=== PATIENT | female | born 1955 | race Caucasian/White ===

== ENCOUNTER → 2016-07-09 | Outpatient (REF) | payer OTHER ==
[~2016-07-09] MED LIST: ALBU83IN INH; ASPI1TAB6 PO; ASPI81TAEC PO; CALC1TAB30 PO; CLIN1CAP5 PO; INSULADS SC; IPRA2IN INH; KENALOG 0.1%; LASI40TA PO; LIPI20TA PO; LISI-542 PO; METF1000 PO; NICO14DI3 TD; NO HOME MEDS; TIOT18INH INH; TYLE325T5 PO; VITA100T60 PO; VITMTA PO; atrovent INH; ventolin neb INH
[2016-07-09 14:03] LABS: ANION GAP 7 MEQ/L (8-16); BLOOD UREA NITROGEN 12 MG/DL (7-18); CARBON DIOXIDE LEVEL 33 MEQ/L (21-32); CHLORIDE LEVEL 99 MEQ/L (98-107); GLOMERULAR FILTRATION RATE > 60.0 (>45); GLUCOSE, FASTING 208 MG/DL (80-110); POTASSIUM SERUM 4.3 MEQ/L (3.5-5.1); SODIUM LEVEL 139 MEQ/L (136-145)
== END ==
LOC: M SFHCPLAZ 12:17
PROVIDERS: ATTEND Nurse Practitioner Family
DX: E11.9 Type 2 diabetes mellitus without complications (principal)

== ENCOUNTER → 2016-10-09 | Outpatient (REF) | payer OTHER ==
[2016-10-09 19:12] LABS: CALCIUM LEVEL 9.1 MG/DL (8.8-10.2); CREATININE FOR GFR 1.04 MG/DL (0.55-1.02); GLOMERULAR FILTRATION RATE 57.4 (>45)
== END ==
LOC: M SFHCPLAZ 15:01
PROVIDERS: ATTEND Nurse Practitioner Family
DX: E11.9 Type 2 diabetes mellitus without complications (principal)

== ENCOUNTER → 2017-12-30 | Outpatient (CLI) | payer OTHER ==
[2017-12-30 07:39] LABS: ESTIMATED AVERAGE GLUCOSE 160 MG/DL (60-110); HEMOGLOBIN A1c 7.2 %
[2017-12-30 07:50] LABS: ALBUMIN 3.5 GM/DL (3.2-5.2); ALBUMIN/GLOBULIN RATIO 1.06 (1.00-1.93); ALKALINE PHOSPHATASE 117 U/L (45-117); ALT/SGPT 18 U/L (12-78); ANION GAP 4 MEQ/L (8-16); AST/SGOT 12 U/L (7-37); BILIRUBIN,TOTAL 0.3 MG/DL (0.2-1.0); BLOOD UREA NITROGEN 14 MG/DL (7-18); CALCIUM LEVEL 8.9 MG/DL (8.8-10.2); CARBON DIOXIDE LEVEL 36 MEQ/L (21-32); CHLORIDE LEVEL 105 MEQ/L (98-107); CHOLESTEROL LEVEL 114 MG/DL (<200); CREATININE FOR GFR 0.84 MG/DL (0.55-1.30); GLOMERULAR FILTRATION RATE > 60.0 (>45); GLUCOSE, FASTING 115 MG/DL (70-100); HDL CHOLESTEROL 44 MG/DL (>40); LDL CHOLESTEROL 34.8 MG/DL (<100); NON-HDL-C 70 MG/DL; POTASSIUM SERUM 4.3 MEQ/L (3.5-5.1); SODIUM LEVEL 145 MEQ/L (136-145); TOTAL PROTEIN 6.8 GM/DL (6.4-8.2); TRIGLYCERIDES LEVEL 176 MG/DL (<150)
[2017-12-30 07:59] LABS: MAU/CREAT RATIO 80.1 MCG/MG (0.0-30.0)
== END ==
LOC: M LAB 06:52
DX: I10 Essential (primary) hypertension (principal); E11.9 Type 2 diabetes mellitus without complications
CPT/HCPCS: 80053

== ENCOUNTER → 2018-01-21 | Outpatient (CLI) | payer OTHER | LOC: M WHC 13:50 | DX: Z12.31 Encounter for screening mammogram for malignant neoplasm of breast (principal) | CPT/HCPCS: 77067 ==

== ENCOUNTER → 2018-03-10 | Outpatient (CLI) | payer OTHER | LOC: M RAD 11:44 | DX: J44.9 Chronic obstructive pulmonary disease, unspecified (principal); R09.02 Hypoxemia | CPT/HCPCS: 71046 ==

== ENCOUNTER → 2018-03-10 | Outpatient (REF) | payer OTHER ==
[2018-03-10 13:32] LABS: BASO % 0.4 % (0.0-1.0); EOS # 0.5 10^3/uL (0.0-0.50); EOS % 6.1 % (0.0-3.0); HEMOGLOBIN 15.8 g/dl (12.0-15.5); IMMATURE GRANULOCYTE % 0.2 % (0-3.0); LYMPH # 2.2 10^3/uL (1.5-4.5); LYMPH % 25.6 % (24.0-44.0); MEAN CORPUSCULAR HEMOGLOBIN 32.9 pg (27.0-33.0); MEAN CORPUSCULAR HGB CONC 32.9 g/dl (32.0-36.5); MONO # 0.6 10^3/uL (0.0-0.8); MONO % 6.7 % (0.0-5.0); NEUTROPHILS # 5.2 10^3/uL (1.8-7.7); PLATELET COUNT, AUTOMATED 247 10^3/uL (150-450); RED CELL DISTRIBUTION WIDTH 12.5 % (11.5-14.5); WHITE BLOOD COUNT 8.5 10^3/uL (4.0-10.0)
[2018-03-10 13:41] LABS: ALBUMIN 3.8 GM/DL (3.2-5.2); ALBUMIN/GLOBULIN RATIO 1.27 (1.00-1.93); ALKALINE PHOSPHATASE 112 U/L (45-117); ALT/SGPT 25 U/L (12-78); ANION GAP 5 MEQ/L (8-16); AST/SGOT 14 U/L (7-37); BILIRUBIN,TOTAL 0.6 MG/DL (0.2-1.0); BLOOD UREA NITROGEN 9 MG/DL (7-18); CALCIUM LEVEL 9.8 MG/DL (8.8-10.2); CARBON DIOXIDE LEVEL 39 MEQ/L (21-32); CHLORIDE LEVEL 101 MEQ/L (98-107); CREATININE FOR GFR 0.83 MG/DL (0.55-1.30); GLOMERULAR FILTRATION RATE > 60.0 (>45); GLUCOSE, FASTING 80 MG/DL (70-100); NT-PRO BNP 185 PG/ML (<125); POTASSIUM SERUM 4.4 MEQ/L (3.5-5.1); SODIUM LEVEL 145 MEQ/L (136-145); TOTAL PROTEIN 6.8 GM/DL (6.4-8.2)
== END ==
LOC: M SFHCPLAZ 10:06
DX: R09.02 Hypoxemia (principal)

== ENCOUNTER → 2018-04-02 | Outpatient (CLI) | payer OTHER | LOC: M RAD 09:19 | DX: Z12.2 Encounter for screening for malignant neoplasm of respiratory organs (principal); F17.210 Nicotine dependence, cigarettes, uncomplicated | CPT/HCPCS: G0297 ==

== ENCOUNTER → 2018-05-02 | Outpatient (CLI) | payer OTHER ==
[~2018-05-02] MED LIST changes: +CLIN150C14 PO; -CLIN1CAP5 PO; -LASI40TA PO; +LASI40TA9 PO; -METF1000 PO; +METF10004 PO
--- NOTE | 2018-05-02 14:57 | REP ---
RIGHT HAND, FOUR VIEWS: HISTORY: Pain. There is no acute fracture or dislocation. The joint spaces are normal in appearance. IMPRESSION: There is no acute fracture or dislocation. Electronically Signed by Isaias Edward MD 05/02/2018 02:59 P
== END ==
LOC: M WUC 14:25
PROVIDERS: ATTEND Physician Assistant
DX: M79.641 Pain in right hand (principal)

== ENCOUNTER → 2018-07-27 | Outpatient (CLI) | payer OTHER ==
--- NOTE | 2018-07-27 15:46 | REP ---
Clinical: Left anterior shoulder pain. Technique: Internal rotation, external rotation, and Y view of the left shoulder. Comparison: 11/11/2016. Findings: Mild cortical irregularity at the acromioclavicular joint is appreciated and may be slightly increased from prior examination. Subtle cortical irregularity and blunting to the ossified glenoid rim is also now identified. The humeral head appears normal. The subacromial space is normal. No periarticular calcifications or loose bodies are identified. Impression: Mild arthritic changes as described above. Electronically Signed by Km Lopez MD 07/27/2018 03:38 P
== END ==
LOC: M WUC 15:25
PROVIDERS: ATTEND Physician Assistant
DX: M19.012 Primary osteoarthritis, left shoulder (principal)

== ENCOUNTER → 2018-09-03 | Outpatient (REF) | payer OTHER ==
[2018-09-03 12:28] LABS: BASO % 0.4 % (0.0-1.0); EOS # 0.4 10^3/uL (0.0-0.50); EOS % 4.7 % (0.0-3.0); HEMATOCRIT 45.1 % (36.0-47.0); HEMOGLOBIN 15.1 g/dl (12.0-15.5); LYMPH # 2.2 10^3/uL (1.5-4.5); LYMPH % 25.5 % (24.0-44.0); MEAN CORPUSCULAR HGB CONC 33.5 g/dl (32.0-36.5); MEAN CORPUSCULAR VOLUME 98.7 fl (80.0-96.0); MONO # 0.5 10^3/uL (0.0-0.8); MONO % 5.7 % (0.0-5.0); NEUTROPHILS # 5.4 10^3/uL (1.8-7.7); NEUTROPHILS % 63.3 % (36.0-66.0); PLATELET COUNT, AUTOMATED 267 10^3/uL (150-450); RED BLOOD COUNT 4.57 10^6/uL (4.00-5.40); WHITE BLOOD COUNT 8.6 10^3/uL (4.0-10.0)
[2018-09-03 12:45] LABS: HEMOGLOBIN A1c 8.3 %
[2018-09-03 12:51] LABS: BLOOD UREA NITROGEN 16 MG/DL (7-18); CARBON DIOXIDE LEVEL 34 MEQ/L (21-32); CHLORIDE LEVEL 100 MEQ/L (98-107); CREATININE FOR GFR 0.96 MG/DL (0.55-1.30); GLOMERULAR FILTRATION RATE > 60.0 (>45); GLUCOSE, FASTING 226 MG/DL (70-100); POTASSIUM SERUM 4.3 MEQ/L (3.5-5.1); SODIUM LEVEL 138 MEQ/L (136-145)
[2018-09-03 12:52] LABS: ALBUMIN 3.7 GM/DL (3.2-5.2); ALT/SGPT 21 U/L (12-78); BILIRUBIN,TOTAL 0.5 MG/DL (0.2-1.0); CALCIUM LEVEL 9.5 MG/DL (8.8-10.2); TOTAL PROTEIN 7.1 GM/DL (6.4-8.2)
[2018-09-03 12:58] LABS: FOLATE 20.1 NG/ML (>5.4); VITAMIN B12 LEVEL 309 PG/ML (247-911)
== END ==
LOC: M SFHCPLAZ 09:01
PROVIDERS: ATTEND Nurse Practitioner Family
DX: E11.9 Type 2 diabetes mellitus without complications (principal); I10 Essential (primary) hypertension; D75.89 Other specified diseases of blood and blood-forming organs

== ENCOUNTER → 2018-10-14 | Outpatient (CLI) | payer OTHER ==
[~2018-10-14] MED LIST changes: +ACET650T15 PO; +INSULADS INJ
--- NOTE | 2018-10-23 15:01 | SLEEPCENT ---
DATE OF STUDY: 10/14/2018 REFERRING PROVIDER: Keily Hartley NP INTERPRETATION: Nocturnal polysomnography was performed for re-titration of pressure therapy in this patient with known obstructive sleep apnea who had and had previously been on a bilevel of 01/30. She gained approximately 30 pounds since that study. It was initially decided to repeat overnight oximetry on her settings as a "poor screen." Her initial overnight oximetry showed significant fluctuations and so her pressures were empirically increased by 2. A repeat again showed abnormalities and she was increased to a level of 14/10. That overnight oximetry showed that she spent the entire night with saturations less than 88% though a portion of that study was missing. There remained mild fluctuations and it was thought best that she return to the sleep lab for a formal titration. A total of 7 hours and 43 minutes of data were reviewed for the entire titration with 380.5 minutes of sleep identified. Sleep latency was 34.5 minutes. Rapid eye movement (REM) latency was 226 minutes. No slow-wave sleep was observed. Sleep efficiency was 83.8%. Electrocardiogram (EKG) showed normal sinus rhythm with an average heart rate of 78 beats per minute. Unifocal premature ventricular contractions (PVCs) were observed. Speeding and slowing was noted surrounding some respiratory events. No epileptiform discharge observed. The patient had been fit with a [employer] Sim[employer] full-face mask of small size, bilevel was started with an inspiratory positive airway pressure (IPAP) of 14 and an expiratory positive airway pressure (EPAP) of 10 and the lights were dimmed. Her bilevel device was increased to maximum IPAP of 25 and EPAP of 21. That is not a pressure that we will be able to obtain on a machine and she appeared due to do reasonably well on an IPAP of 24 and EPAP of 20. At that pressure, her apnea hypopnea index (AHI) was 1.6 and her respiratory arousal index (MCLAUGHLIN) was 0.8. Periodic limb movement (PLM) index was elevated at 124. However, when she entered REM sleep, she did appear to have oxygen desaturation and 2 liters of oxygen was added to this system. She had a reasonable waveform in REM sleep, though no supine REM sleep was until she was on the pressure of 25/21. At that time, there were a few remaining events. In reviewing the overall study, she did not enter REM until she was on the higher bilevel pressures. When she was on the pressure for a more prolonged period time, she did have a decrease in her oxygen saturation necessitating a 2 liter oxygen bleed in. However, when she had been on that pressure for awhile it became apparent that she had a time period whenever I just about decreased oxygen saturations necessitating oxygen bleed in. IMPRESSION: 1. Obstructive sleep apnea, reasonably palliated on bilevel therapy at . There may be some residual events in supine REM sleep. 2. Nocturnal hypoxemia, 2 liter oxygen bleed in was made to eradicate desaturations. RECOMMENDATIONS: Recommend continuation of bilevel therapy at the above pressure via a small [employer] Simplus full-face mask or mask of her preference. Clinical correlation will be necessary to ensure eradication of symptoms. At later time, a repeat nocturnal oximetry on this pressure with a 2 liter bleed in may be necessary to ensure eradication of nocturnal hypoxemia.
== END ==
LOC: M SLEEP 19:56
PROVIDERS: ATTEND Internal Medicine Pulmonary Disease
DX: G47.33 Obstructive sleep apnea (adult) (pediatric) (principal)

== ENCOUNTER 2018-11-08 11:02 | Day surgery (SDC) | payer OTHER ==
[~2018-11-08] VITALS: Ht 167.6 cm; Wt 88.5 kg
[~2018-11-08 11:02] MED LIST changes: +NS 1,000 ML IV ONE
[2018-11-08] MEDS ORDERED: PROPOFOL 200 MG/20 ML VIAL As Ordered ONE ×2 (14:07→14:40)
[2018-11-08] MEDS ORDERED: LIDOCAINE 2% INJ 100 MG/5 ML SDV (FOR ANES.) As Ordered ONE (14:07)
--- NOTE | 2018-11-08 14:46 | ROOR ---
Patient Name: Brandy Modi Procedure Date: 11/08/2018 2:07 PM Date of : 1955 Age: 63 Room: [facility] Gender: Female Note Status: Finalized Procedure: Total Colonoscopy to Cecum + Cold Snare Polypectomy + Hemoclips Indications: High risk colon cancer surveillance: Personal history of colonic polyps, Last colonoscopy: 2013 Providers: Max Sheehan MD Referring MD: Mima Hilario NP Requesting Provider: Medicines: Monitored Anesthesia Care Complications: No immediate complications. Procedure: Pre-Anesthesia Assessment: - The heart rate, respiratory rate, oxygen saturations, blood pressure, adequacy of pulmonary ventilation, and response to care were monitored throughout the procedure. The Colonoscope was introduced through the anus and advanced to the cecum, identified by appendiceal orifice and ileocecal valve. The colonoscopy was performed without difficulty. The patient tolerated the procedure well. The quality of the bowel preparation was good. Findings: The perianal and digital rectal examinations were normal. Non-bleeding internal hemorrhoids were found during retroflexion. The hemorrhoids were small and Grade I (internal hemorrhoids that do not prolapse). A medium polyp was found in the rectum. The polyp was sessile. The polyp was removed with a cold snare. Resection and retrieval were complete. To prevent bleeding after the polypectomy, two hemostatic clips were successfully placed (MR conditional). There was no bleeding at the end of the procedure. A small polyp was found at 25 cm proximal to the anus. The polyp was sessile. The polyp was removed with a cold snare. Resection and retrieval were complete. A medium polyp was found at 50 cm proximal to the anus. The polyp was sessile. The polyp was removed with a cold snare. Resection and retrieval were complete. To prevent bleeding after the polypectomy, three hemostatic clips were successfully placed (MR conditional). There was no bleeding at the end of the procedure. Two sessile polyps were found in the transverse colon. The polyps were small in size. These polyps were removed with a jumbo cold forceps. Resection and retrieval were complete. The exam was otherwise without abnormality on direct and retroflexion views. Impression: - Non-bleeding internal hemorrhoids. - One medium polyp in the rectum, removed with a cold snare. Resected and retrieved. Clips (MR conditional) were placed. - One small polyp at 25 cm proximal to the anus, removed with a cold snare. Resected and retrieved. - One medium polyp at 50 cm proximal to the anus, removed with a cold snare. Resected and retrieved. Clips (MR conditional) were placed. - Two small polyps in the transverse colon, removed with a jumbo cold forceps. Resected and retrieved. - The examination was otherwise normal on direct and retroflexion views. - The exam was otherwise normal to the cecum. Recommendation: - Patient has a contact number available for emergencies. The signs and symptoms of potential delayed complications were discussed with the patient. Return to normal activities tomorrow. Written discharge instructions were provided to the patient. - High fiber diet. - Discharge patient to home. - Continue present medications. - Await pathology results. - Telephone GI clinic for pathology results in 1 week. - Repeat colonoscopy in 5 years for surveillance based on pathology results. - Return to referring physician. - The findings and recommendations were discussed with the patient's family. Max Sheehan MD Max Sheehan MD 11/08/2018 2:46:03 PM Electronically signed by Max Sheehan MD Number of Addenda: 0 Note Initiated On: 11/08/2018 2:07 PM Estimated Blood Loss: Estimated blood loss: none.
[2018-11-08 15:00] VITALS: BP 142/74
== END 2018-11-08 15:00 | disposition home or self-care (01) ==
LOC: M OPP 11:02
PROVIDERS: ATTEND Internal Medicine Gastroenterology
DX: K64.0 First degree hemorrhoids (principal); K62.1 Rectal polyp; K63.5 Polyp of colon; Z79.4 Long term (current) use of insulin; Z79.82 Long term (current) use of aspirin; Z79.899 Other long term (current) drug therapy; F17.210 Nicotine dependence, cigarettes, uncomplicated; Z12.11 Encounter for screening for malignant neoplasm of colon; Z86.010 Personal history of colon polyps

== ENCOUNTER → 2018-12-06 | Outpatient (REF) | payer OTHER ==
[~2018-12-06] MED LIST changes: -NS 1,000 ML IV ONE
[2018-12-06 13:56] LABS: BASO % 0.4 % (0.0-1.0); EOS # 0.6 10^3/uL (0.0-0.50); EOS % 6.8 % (0.0-3.0); HEMATOCRIT 42.9 % (36.0-47.0); HEMOGLOBIN 14.7 g/dl (12.0-15.5); LYMPH % 24.2 % (24.0-44.0); MEAN CORPUSCULAR HEMOGLOBIN 33.6 pg (27.0-33.0); MEAN CORPUSCULAR HGB CONC 34.3 g/dl (32.0-36.5); MEAN CORPUSCULAR VOLUME 98.2 fl (80.0-96.0); MONO # 0.5 10^3/uL (0.0-0.8); MONO % 5.7 % (0.0-5.0); NEUTROPHILS # 5.1 10^3/uL (1.8-7.7); NEUTROPHILS % 62.5 % (36.0-66.0); PLATELET COUNT, AUTOMATED 257 10^3/uL (150-450); RED BLOOD COUNT 4.37 10^6/uL (4.00-5.40); WHITE BLOOD COUNT 8.2 10^3/uL (4.0-10.0)
[2018-12-06 14:31] LABS: ALBUMIN 3.5 GM/DL (3.2-5.2); ALT/SGPT 25 U/L (12-78); BILIRUBIN,TOTAL 0.6 MG/DL (0.2-1.0); BLOOD UREA NITROGEN 11 MG/DL (7-18); CALCIUM LEVEL 9.1 MG/DL (8.8-10.2); CARBON DIOXIDE LEVEL 31 MEQ/L (21-32); CHLORIDE LEVEL 101 MEQ/L (98-107); CHOLESTEROL LEVEL 121 MG/DL (<200); CHOLESTEROL RISK RATIO 3.102 (<5); CREATININE FOR GFR 0.96 MG/DL (0.55-1.30); GLOMERULAR FILTRATION RATE > 60.0 (>45); GLUCOSE, FASTING 146 MG/DL (70-100); HDL CHOLESTEROL 39 MG/DL (>40); LDL CHOLESTEROL 31 MG/DL (<100); NON-HDL-C 82 MG/DL; POTASSIUM SERUM 4.4 MEQ/L (3.5-5.1); SODIUM LEVEL 140 MEQ/L (136-145); THYROID STIMULATING HORMONE 0.844 uIU/ML (0.358-3.740); TOTAL PROTEIN 6.8 GM/DL (6.4-8.2); TRIGLYCERIDES LEVEL 257 MG/DL (<150)
[2018-12-06 14:33] LABS: CREATININE, URINE 57.2 MG/DL; MALB URINE SIEMENS 10.1 MG/L; MAU/CREAT RATIO 17.6 MCG/MG (0.0-30.0)
[2018-12-06 16:04] LABS: HEMOGLOBIN A1c 8.4 %
== END ==
LOC: M SFHCPLAZ 09:48
PROVIDERS: ATTEND Nurse Practitioner Family
DX: I10 Essential (primary) hypertension (principal); E11.9 Type 2 diabetes mellitus without complications; E78.5 Hyperlipidemia, unspecified; D75.89 Other specified diseases of blood and blood-forming organs

== ENCOUNTER → 2019-04-04 | Outpatient (REF) | payer OTHER ==
[2019-04-04 12:06] LABS: BASO # 0.1 10^3/uL (0.0-0.2); BASO % 0.6 % (0.0-1.0); EOS # 0.4 10^3/uL (0.0-0.5); EOS % 4.6 % (0.0-3.0); HEMOGLOBIN 15.1 g/dl (12.0-15.5); LYMPH # 1.9 10^3/uL (1.5-5.0); LYMPH % 20.9 % (24.0-44.0); MEAN CORPUSCULAR HEMOGLOBIN 33.6 pg (27.0-33.0); MEAN CORPUSCULAR HGB CONC 33.6 g/dl (32.0-36.5); MEAN CORPUSCULAR VOLUME 100.2 fl (80.0-96.0); MONO # 0.5 10^3/uL (0.0-0.8); MONO % 5.7 % (0.0-5.0); NEUTROPHILS # 6.2 10^3/uL (1.5-8.5); NEUTROPHILS % 67.9 % (36.0-66.0); PLATELET COUNT, AUTOMATED 269 10^3/uL (150-450); RED BLOOD COUNT 4.49 10^6/uL (4.00-5.40); WHITE BLOOD COUNT 9.1 10^3/uL (4.0-10.0)
[2019-04-04 12:15] LABS: ALBUMIN 3.8 GM/DL (3.2-5.2); ALT/SGPT 17 U/L (12-78); BILIRUBIN,TOTAL 0.5 MG/DL (0.2-1.0); BLOOD UREA NITROGEN 15 MG/DL (7-18); CALCIUM LEVEL 9.1 MG/DL (8.8-10.2); CARBON DIOXIDE LEVEL 34 MEQ/L (21-32); CHLORIDE LEVEL 101 MEQ/L (98-107); CREATININE FOR GFR 0.99 MG/DL (0.55-1.30); GLOMERULAR FILTRATION RATE > 60.0 (>45); GLUCOSE, FASTING 220 MG/DL (70-100); NT-PRO BNP 170 PG/ML (<125); POTASSIUM SERUM 4.5 MEQ/L (3.5-5.1); SODIUM LEVEL 139 MEQ/L (136-145)
[2019-04-04 12:25] LABS: HEMOGLOBIN A1c 7.9 %
[2019-04-04 13:19] LABS: FOLATE > 24.0 NG/ML (>5.4); VITAMIN B12 LEVEL 323 PG/ML (247-911)
== END ==
LOC: M SFHCPLAZ 09:24
PROVIDERS: ATTEND Physician Assistant Medical
DX: E11.9 Type 2 diabetes mellitus without complications (principal); D75.89 Other specified diseases of blood and blood-forming organs; I50.30 Unspecified diastolic (congestive) heart failure; E78.5 Hyperlipidemia, unspecified

== ENCOUNTER → 2019-04-18 | Outpatient (CLI) | payer OTHER ==
--- NOTE | 2019-04-18 15:58 | REP ---
Clinical: Lower back pain. Technique: AP, lateral, bilateral oblique and coned-down views of the lumbosacral spine. Findings: Alignment and lordosis maintained. Age-related osteopenia and age-related changes include endplate sclerosis with minimal spurring and mild facet arthropathy suggested. Disc spaces appear relatively well maintained although mild disc space narrowing at L5-S1 cannot be excluded. No acute fracture / compression injury or subluxation. Impression: Essentially age-appropriate examination. Minimal disc space narrowing at L5-S1 cannot be excluded. Electronically Signed by Km Lopez MD 04/18/2019 03:50 P
== END ==
LOC: M WUC 15:28
PROVIDERS: ATTEND Nurse Practitioner Family
DX: M54.5 Low back pain (principal)

== ENCOUNTER → 2019-05-17 | Outpatient (CLI) | payer OTHER ==
--- NOTE | 2019-05-18 04:04 | REP ---
Clinical: Lung screening. History smoking. Comparison: 04/02/2018 Technique: Axial low-dose noncontrast images from the thoracic inlet to the upper abdomen using lung screening technique. Findings: The lung turner are well-aerated. No consolidation, significant nodule or mass lesion is appreciated. No pleural effusion/reaction or pneumothorax. Tracheobronchial tree is patent. Mediastinum demonstrates atherosclerotic changes of the coronary arteries without cardiomegaly. Impression: Lung-RADS category I. No nodule or suspicious abnormality. Recommendations include annual low-dose CT surveillance. Electronically Signed by Km Lopez MD 05/18/2019 03:57 A
== END ==
LOC: M RAD 13:24
PROVIDERS: ATTEND Physician Assistant Medical
DX: Z12.2 Encounter for screening for malignant neoplasm of respiratory organs (principal); Z87.891 Personal history of nicotine dependence

== ENCOUNTER → 2019-08-17 | Outpatient (REF) | payer OTHER ==
[2019-08-17 13:14] LABS: BASO % 0.2 % (0.0-1.0); EOS # 0.3 10^3/uL (0.0-0.5); EOS % 3.3 % (0.0-3.0); HEMATOCRIT 48.1 % (36.0-47.0); HEMOGLOBIN 15.6 g/dl (12.0-15.5); LYMPH # 1.5 10^3/uL (1.5-5.0); LYMPH % 19.1 % (24.0-44.0); MEAN CORPUSCULAR HEMOGLOBIN 32.4 pg (27.0-33.0); MEAN CORPUSCULAR HGB CONC 32.4 g/dl (32.0-36.5); MONO # 0.6 10^3/uL (0.0-0.8); MONO % 7.1 % (0.0-5.0); NEUTROPHILS # 5.7 10^3/uL (1.5-8.5); NEUTROPHILS % 70.1 % (36.0-66.0); PLATELET COUNT, AUTOMATED 259 10^3/uL (150-450); RED BLOOD COUNT 4.81 10^6/uL (4.00-5.40); WHITE BLOOD COUNT 8.1 10^3/uL (4.0-10.0)
[2019-08-17 13:29] LABS: ALBUMIN 3.5 GM/DL (3.2-5.2); ALT/SGPT 14 U/L (12-78); BILIRUBIN,TOTAL 0.6 MG/DL (0.2-1.0); BLOOD UREA NITROGEN 9 MG/DL (7-18); CALCIUM LEVEL 9.3 MG/DL (8.8-10.2); CARBON DIOXIDE LEVEL 37 MEQ/L (21-32); CHLORIDE LEVEL 97 MEQ/L (98-107); CREATININE FOR GFR 0.79 MG/DL (0.55-1.30); GLOMERULAR FILTRATION RATE > 60.0 (>45); GLUCOSE, FASTING 192 MG/DL (70-100); NT-PRO BNP 157 PG/ML (<125); POTASSIUM SERUM 4.3 MEQ/L (3.5-5.1); SODIUM LEVEL 137 MEQ/L (136-145); TOTAL PROTEIN 6.7 GM/DL (6.4-8.2)
[2019-08-17 13:57] LABS: CREATININE, URINE 39.7 MG/DL; MALB URINE SIEMENS 9.8 MG/L; MAU/CREAT RATIO 24.6 MCG/MG (0.0-30.0)
[2019-08-17 14:14] LABS: HEMOGLOBIN A1c 7.3 %
== END ==
LOC: M SFHCPLAZ 11:08
PROVIDERS: ATTEND Physician Assistant Medical
DX: I11.0 Hypertensive heart disease with heart failure (principal); I50.30 Unspecified diastolic (congestive) heart failure; E11.9 Type 2 diabetes mellitus without complications

== ENCOUNTER → 2020-05-16 | Outpatient (REF) | payer OTHER ==
[~2020-05-16] MED LIST changes: -CLIN150C14 PO; +CLIN150C15 PO; -LISI-542 PO; +LISI-898 PO
[2020-05-16 13:36] LABS: BASO % 0.4 % (0.0-1.0); EOS # 0.4 10^3/uL (0.0-0.5); EOS % 3.8 % (0.0-3.0); HEMATOCRIT 45.7 % (36.0-47.0); HEMATOCRIT 46.8 % (36.0-47.0); HEMOGLOBIN 15.1 g/dl (12.0-15.5); LYMPH # 2.5 10^3/uL (1.5-5.0); LYMPH % 26.4 % (24.0-44.0); MEAN CORPUSCULAR HEMOGLOBIN 33.5 pg (27.0-33.0); MEAN CORPUSCULAR HGB CONC 32.3 g/dl (32.0-36.5); MEAN CORPUSCULAR VOLUME 103.8 fl (80.0-96.0); MONO # 0.6 10^3/uL (0.0-0.8); MONO % 6.3 % (0.0-5.0); NEUTROPHILS % 62.8 % (36.0-66.0); PLATELET COUNT, AUTOMATED 276 10^3/uL (150-450); RED BLOOD COUNT 4.51 10^6/uL (4.00-5.40); WHITE BLOOD COUNT 9.5 10^3/uL (4.0-10.0)
[2020-05-16 14:04] LABS: ALBUMIN 3.6 GM/DL (3.2-5.2); ALT/SGPT 15 U/L (12-78); BILIRUBIN,TOTAL 0.4 MG/DL (0.2-1.0); BLOOD UREA NITROGEN 9 MG/DL (7-18); CALCIUM LEVEL 9.6 MG/DL (8.8-10.2); CARBON DIOXIDE LEVEL 37 MEQ/L (21-32); CHLORIDE LEVEL 101 MEQ/L (98-107); CHOLESTEROL LEVEL 104 MG/DL (<200); CHOLESTEROL RISK RATIO 2.311 (<5); CPK CREATINE PHOSPHOKINASE 36 U/L (26-192); CREATININE FOR GFR 0.79 MG/DL (0.55-1.30); GLOMERULAR FILTRATION RATE > 60.0 (>45); GLUCOSE, FASTING 83 MG/DL (70-100); HDL CHOLESTEROL 45 MG/DL (>40); LDL CHOLESTEROL 25 MG/DL (<100); NON-HDL-C 59 MG/DL; NT-PRO BNP 220 PG/ML (<125); POTASSIUM SERUM 4.4 MEQ/L (3.5-5.1); SODIUM LEVEL 140 MEQ/L (136-145); TOTAL PROTEIN 6.4 GM/DL (6.4-8.2); TRIGLYCERIDES LEVEL 168 MG/DL (<150)
[2020-05-16 14:08] LABS: FOLATE > 24.0 NG/ML (>5.4); VITAMIN B12 LEVEL 310 PG/ML (247-911)
[2020-05-16 14:10] LABS: CREATININE, URINE 24.5 MG/DL; MAU/CREAT RATIO 28.5 MCG/MG (0.0-30.0)
[2020-05-16 14:16] LABS: HEMOGLOBIN A1c 6.2 %
== END ==
LOC: M SFHCPLAZ 11:52
PROVIDERS: ATTEND Physician Assistant Medical
DX: I11.0 Hypertensive heart disease with heart failure (principal); I50.30 Unspecified diastolic (congestive) heart failure; E11.9 Type 2 diabetes mellitus without complications; D75.89 Other specified diseases of blood and blood-forming organs; E78.5 Hyperlipidemia, unspecified

== ENCOUNTER → 2020-05-25 | Outpatient (CLI) | payer OTHER ==
[~2020-05-25] MED LIST changes: +LISI-542 PO; -LISI-898 PO
--- NOTE | 2020-05-25 08:29 | REP ---
INDICATION: LUNG SCREENING. COMPARISON: Comparison chest CT studies are reviewed, the most recent of these is from 17 May 2019. The most remote is from 25 October 2013.. TECHNIQUE: Noncontrast screening chest CT. 3 mm axial slices are provided at lung only windows. FINDINGS: Digital preliminary stain dipper radiograph is unremarkable. The lung turner remain clear. Vascular calcification is seen. No significant pulmonary nodule or lung mass is seen. On today's CT acquisition, there are 2 areas of focal mural nodular soft tissue density in the trachea, 1 anteriorly at the top of the manubrium and the other just below this along the left lateral wall. each of these measure 5 mm in greatest thickness. Adherent mucus versus tracheal nodule. These findings are new from the prior study. No inflammatory changes are seen in the lung turner. IMPRESSION: There are 2 polypoid densities along the proximal tracheal wall on today's study. These are most likely adherent mucus droplets. Tracheal polyps cannot be excluded radiographically. Consideration could be given to short interval follow-up chest CT screening protocol to evaluate for persistence of the finding. If persistent and felt to be actual polyps, bronchoscopy would be indicated. Otherwise, and regarding the pulmonary parenchyma, findings are lung RADS category 1 S. <Electronically signed by Tony Martinez > 05/25/20 [id number]
== END ==
LOC: M RAD 07:04
PROVIDERS: ATTEND Internal Medicine Pulmonary Disease
DX: Z12.2 Encounter for screening for malignant neoplasm of respiratory organs (principal); F17.218 Nicotine dependence, cigarettes, with other nicotine-induced disorders; R91.8 Other nonspecific abnormal finding of lung field

== ENCOUNTER → 2020-06-18 | Outpatient (CLI) | payer OTHER ==
[~2020-06-18] MED LIST changes: -LISI-542 PO; +LISI-898 PO
--- NOTE | 2020-06-18 12:11 | REP ---
INDICATION: LEFT SHOULDER PAIN. COMPARISON: 07/27/2018 TECHNIQUE: Three views FINDINGS: AC joint shows no widening of the joint space or elevation of the clavicle in relationship to the acromion. There is a inferior spur from the clavicle. On the external rotation view there is a small calcification adjacent to the peripheral margin of the humeral head that may reflect calcific tendinopathy. Minimal degenerative changes at the inferior aspect of the glenohumeral joint noted without subluxation or dislocation. No abnormal periarticular calcifications at the glenohumeral joint. There is no humeral fracture or focal lesion. The ribs and scapula are without fracture. No adjacent pneumothorax in the upper chest. IMPRESSION: 1. AC and glenohumeral joint degenerative changes with small spurs noted. 2. Tiny calcific density adjacent to the greater tuberosity humeral head on external rotation view may reflect some calcific tendinopathy. No fracture or focal bone lesion. <Electronically signed by Maurice Camejo > 06/18/20 [id number]
== END ==
LOC: M RAD 11:24
PROVIDERS: ATTEND Physician Assistant Medical
DX: M25.712 Osteophyte, left shoulder (principal)

== ENCOUNTER → 2020-07-17 | Outpatient (CLI) | payer OTHER ==
[~2020-07-17] MED LIST changes: +ASPI-569 PO; -ASPI81TAEC PO
--- NOTE | 2020-07-17 14:27 | REP ---
INDICATION: OTHER NON SPECIFIC ABNORMAL FINDING OF LUNG FILED. COMPARISON: Comparison CT studies are from 17 May 2019 and 25 May 2020. The April 2020 study showed polypoid nodular densities along the tracheal wall.. TECHNIQUE: Helical scanning is acquired. 3 mm axial images are generated. Coronal and sagittal MPR and coronal MIP images are generated. FINDINGS: There is no evidence of endotracheal polyp on today's study. There is minimal mucoid material adherent to the left mainstem bronchus anterior wall today which is not present on 05 May 2020. No endobronchial lesion is appreciated. There are a few small bulla lie in the left lung apex medially. Mild bibasilar linear fibrosis is observed. Vascular calcification is present as before. No hilar or mediastinal mass or adenopathy is observed. No axillary or extra thoracic mass or adenopathy is seen. Vascular calcification is observed in the tortuous splenic artery in the left upper quadrant of the abdomen. No bony lesion is seen. IMPRESSION: No evidence of persistent tracheal polyp or mass lesion. Findings compatible with adherent mucus on the prior CT study. Mild bibasilar fibrosis. No acute abnormality. <Electronically signed by Tony Martinez > 07/17/20 [id number]
== END ==
LOC: M RAD 10:10
PROVIDERS: ATTEND Internal Medicine Pulmonary Disease
DX: R91.8 Other nonspecific abnormal finding of lung field (principal)

== ENCOUNTER → 2020-09-13 | Outpatient (REF) | payer OTHER ==
[2020-09-13 13:36] LABS: BASO % 0.2 % (0.0-1.0); EOS # 0.4 10^3/uL (0.0-0.5); EOS % 4.6 % (0.0-3.0); HEMOGLOBIN 13.7 g/dl (12.0-15.5); LYMPH # 2.2 10^3/uL (1.5-5.0); MEAN CORPUSCULAR HEMOGLOBIN 32.9 pg (27.0-33.0); MEAN CORPUSCULAR HGB CONC 32.6 g/dl (32.0-36.5); MONO # 0.5 10^3/uL (0.0-0.8); MONO % 5.7 % (2.0-8.0); NEUTROPHILS # 4.9 10^3/uL (1.5-8.5); NEUTROPHILS % 61.1 % (36.0-66.0); PLATELET COUNT, AUTOMATED 251 10^3/uL (150-450); RED BLOOD COUNT 4.16 10^6/uL (4.00-5.40)
[2020-09-13 14:09] LABS: ALBUMIN 3.6 GM/DL (3.2-5.2); ALT/SGPT 13 U/L (12-78); BILIRUBIN,TOTAL 0.4 MG/DL (0.2-1.0); BLOOD UREA NITROGEN 7 MG/DL (7-18); CALCIUM LEVEL 9.8 MG/DL (8.8-10.2); CARBON DIOXIDE LEVEL 34 MEQ/L (21-32); CHLORIDE LEVEL 99 MEQ/L (98-107); CREATININE FOR GFR 0.81 MG/DL (0.55-1.30); GLOMERULAR FILTRATION RATE > 60.0 (>45); GLUCOSE, FASTING 175 MG/DL (70-100); NT-PRO BNP 149 PG/ML (<125); POTASSIUM SERUM 4.3 MEQ/L (3.5-5.1); SODIUM LEVEL 138 MEQ/L (136-145); TOTAL PROTEIN 6.8 GM/DL (6.4-8.2)
[2020-09-13 14:48] LABS: HEMOGLOBIN A1c 8.5 %
== END ==
LOC: M SFHCPLAZ 09:54
PROVIDERS: ATTEND Physician Assistant Medical
DX: I11.0 Hypertensive heart disease with heart failure (principal); E11.9 Type 2 diabetes mellitus without complications; D75.89 Other specified diseases of blood and blood-forming organs

== ENCOUNTER → 2021-01-17 | Outpatient (CLI) | payer OTHER ==
[~2021-01-17] MED LIST changes: -CLIN150C15 PO; +CLIN150C17 PO
[2021-01-17 12:50] LABS: BASO % 0.4 % (0.0-1.0); EOS # 0.3 10^3/uL (0.0-0.5); EOS % 3.5 % (0.0-3.0); HEMATOCRIT 43.2 % (36.0-47.0); HEMOGLOBIN 14.5 g/dl (12.0-15.5); LYMPH # 2.1 10^3/uL (1.5-5.0); LYMPH % 26.6 % (24.0-44.0); MEAN CORPUSCULAR HEMOGLOBIN 34.1 pg (27.0-33.0); MEAN CORPUSCULAR HGB CONC 33.6 g/dl (32.0-36.5); MEAN CORPUSCULAR VOLUME 101.6 fl (80.0-96.0); MONO # 0.5 10^3/uL (0.0-0.8); MONO % 5.9 % (2.0-8.0); NEUTROPHILS % 63.3 % (36.0-66.0); PLATELET COUNT, AUTOMATED 270 10^3/uL (150-450); RED BLOOD COUNT 4.25 10^6/uL (4.00-5.40); WHITE BLOOD COUNT 7.9 10^3/uL (4.0-10.0)
[2021-01-17 13:28] LABS: HEMOGLOBIN A1c 7.2 %
[2021-01-17 13:48] LABS: ALBUMIN 3.6 GM/DL (3.2-5.2); ALT/SGPT 16 U/L (12-78); BILIRUBIN,TOTAL 0.5 MG/DL (0.2-1.0); BLOOD UREA NITROGEN 12 MG/DL (7-18); CALCIUM LEVEL 9.2 MG/DL (8.8-10.2); CARBON DIOXIDE LEVEL 38 MEQ/L (21-32); CHLORIDE LEVEL 97 MEQ/L (98-107); CREATININE FOR GFR 0.87 MG/DL (0.55-1.30); GLOMERULAR FILTRATION RATE > 60.0 (>45); GLUCOSE, FASTING 233 MG/DL (70-100); POTASSIUM SERUM 4.5 MEQ/L (3.5-5.1); SODIUM LEVEL 138 MEQ/L (136-145); TOTAL PROTEIN 6.8 GM/DL (6.4-8.2)
== END ==
LOC: M PLALAB 10:56
PROVIDERS: ATTEND Physician Assistant Medical
DX: I50.30 Unspecified diastolic (congestive) heart failure (principal)

== ENCOUNTER → 2021-05-22 | Outpatient (CLI) | payer OTHER ==
[~2021-05-22] MED LIST changes: -LISI-898 PO; +LISI5TAB11 PO
[2021-05-22 14:03] LABS: BASO % 0.4 % (0.0-1.0); EOS # 0.2 10^3/uL (0.0-0.5); EOS % 2.5 % (0.0-3.0); HEMATOCRIT 47.8 % (36.0-47.0); HEMOGLOBIN 15.8 g/dl (12.0-15.5); LYMPH # 2.6 10^3/uL (1.5-5.0); LYMPH % 26.9 % (24.0-44.0); MEAN CORPUSCULAR HEMOGLOBIN 33.3 pg (27.0-33.0); MEAN CORPUSCULAR HGB CONC 33.1 g/dl (32.0-36.5); MEAN CORPUSCULAR VOLUME 100.6 fl (80.0-96.0); MONO # 0.6 10^3/uL (0.0-0.8); MONO % 5.7 % (2.0-8.0); NEUTROPHILS # 6.2 10^3/uL (1.5-8.5); NEUTROPHILS % 64.3 % (36.0-66.0); PLATELET COUNT, AUTOMATED 289 10^3/uL (150-450); RED BLOOD COUNT 4.75 10^6/uL (4.00-5.40); WHITE BLOOD COUNT 9.7 10^3/uL (4.0-10.0)
[2021-05-22 14:42] LABS: ALBUMIN 3.9 GM/DL (3.2-5.2); ALT/SGPT 19 U/L (12-78); BILIRUBIN,TOTAL 0.6 MG/DL (0.2-1.0); BLOOD UREA NITROGEN 11 MG/DL (7-18); CALCIUM LEVEL 9.8 MG/DL (8.8-10.2); CARBON DIOXIDE LEVEL 37 MEQ/L (21-32); CHLORIDE LEVEL 96 MEQ/L (98-107); CHOLESTEROL LEVEL 126 MG/DL (<200); CHOLESTEROL RISK RATIO 2.625 (<5); CREATININE FOR GFR 0.91 MG/DL (0.55-1.30); GLOMERULAR FILTRATION RATE > 60.0 (>45); GLUCOSE, FASTING 109 MG/DL (70-100); HDL CHOLESTEROL 48 MG/DL (>40); LDL CHOLESTEROL 38 MG/DL (<100); NON-HDL-C 78 MG/DL; NT-PRO BNP 149 PG/ML (<125); POTASSIUM SERUM 4.3 MEQ/L (3.5-5.1); SODIUM LEVEL 137 MEQ/L (136-145); TOTAL PROTEIN 7.5 GM/DL (6.4-8.2); TRIGLYCERIDES LEVEL 200 MG/DL (<150)
[2021-05-22 14:47] LABS: VITAMIN B12 LEVEL 590 PG/ML (247-911)
[2021-05-22 15:16] LABS: CREATININE, URINE < 13.0 MG/DL; MALB URINE SIEMENS 5.1 MG/L
[2021-05-22 15:23] LABS: HEMOGLOBIN A1c 8.2 %
== END ==
LOC: M PLALAB 10:08
PROVIDERS: ATTEND Physician Assistant Medical
DX: I11.0 Hypertensive heart disease with heart failure (principal)

== ENCOUNTER → 2021-07-11 | Outpatient (CLI) | payer MEDICARE | LOC: M WHC 07:52 | PROVIDERS: ATTEND Physician Assistant Medical | DX: Z12.31 Encounter for screening mammogram for malignant neoplasm of breast (principal) ==

== ENCOUNTER → 2021-08-29 | Outpatient (REF) | payer MEDICARE ==
[2021-08-29 19:23] LABS: APPEARANCE, URINE HAZY (CLEAR); BACTERIA, URINE AUTO NEGATIVE (NEGATIVE); BILIRUBIN, URINE AUTO NEGATIVE (NEGATIVE); BLOOD, URINE BLOOD NEGATIVE (NEGATIVE); COLOR, URINE YELLOW (YELLOW); GLUCOSE, URINE (UA) AUTO 3+ mg/dL (NEGATIVE); KETONE, URINE AUTO NEGATIVE (NEGATIVE); LEUKOCYTE ESTERASE, URINE AUTO 1+ (NEGATIVE); MUCUS, URINE SMALL (NEGATIVE); NITRITE, URINE AUTO NEGATIVE (NEGATIVE); PROTEIN, URINE AUTO NEGATIVE (NEGATIVE); RBC, URINE AUTO 0 /HPF (0-3); SPECIFIC GRAVITY URINE AUTO 1.022 (1.002-1.035); SQUAMOUS EPITHELIAL CELL UR AU 1 /HPF (0-6); WBC, URINE AUTO 4 /HPF (0-3)
== END ==
LOC: M LAB REF 16:39
PROVIDERS: ATTEND Physician Assistant
DX: R30.0 Dysuria (principal)

== ENCOUNTER → 2021-10-23 | Outpatient (CLI) | payer MEDICARE ==
[~2021-10-23] MED LIST changes: +ALBU2.5V10 INH; -ALBU83IN INH
[2021-10-23 12:37] LABS: BASO % 0.4 % (0.0-1.0); EOS # 0.2 10^3/uL (0.0-0.5); HEMOGLOBIN 15.1 g/dl (12.0-15.5); LYMPH # 2.1 10^3/uL (1.5-5.0); LYMPH % 22.9 % (24.0-44.0); MEAN CORPUSCULAR HEMOGLOBIN 33.7 pg (27.0-33.0); MEAN CORPUSCULAR HGB CONC 32.8 g/dl (32.0-36.5); MEAN CORPUSCULAR VOLUME 102.7 fl (80.0-96.0); MONO # 0.5 10^3/uL (0.0-0.8); MONO % 5.7 % (2.0-8.0); NEUTROPHILS # 6.2 10^3/uL (1.5-8.5); NEUTROPHILS % 68.7 % (36.0-66.0); PLATELET COUNT, AUTOMATED 234 10^3/uL (150-450); RED BLOOD COUNT 4.48 10^6/uL (4.00-5.40); WHITE BLOOD COUNT 9.1 10^3/uL (4.0-10.0)
[2021-10-23 13:03] LABS: HEMOGLOBIN A1c 7.2 %
[2021-10-23 13:07] LABS: ALBUMIN 3.7 GM/DL (3.2-5.2); ALT/SGPT 10 U/L (12-78); BILIRUBIN,TOTAL 0.3 MG/DL (0.2-1.0); BLOOD UREA NITROGEN 12 MG/DL (7-18); CALCIUM LEVEL 10.2 MG/DL (8.8-10.2); CARBON DIOXIDE LEVEL 35 MEQ/L (21-32); CHLORIDE LEVEL 104 MEQ/L (98-107); CREATININE FOR GFR 0.83 MG/DL (0.55-1.30); GLOMERULAR FILTRATION RATE > 60.0 (>45); GLUCOSE, FASTING 91 MG/DL (70-100); POTASSIUM SERUM 4.4 MEQ/L (3.5-5.1); SODIUM LEVEL 141 MEQ/L (136-145)
== END ==
LOC: M RAD 11:15
PROVIDERS: ATTEND Physician Assistant Medical
DX: M51.36 Other intervertebral disc degeneration, lumbar region (principal); M51.37 Other intervertebral disc degeneration, lumbosacral region; M53.84 Other specified dorsopathies, thoracic region; I11.0 Hypertensive heart disease with heart failure; E78.5 Hyperlipidemia, unspecified; Z79.899 Other long term (current) drug therapy

== ENCOUNTER 2022-02-10 13:01 | Emergency (ER) | payer MEDICARE ==
[~2022-02-10] VITALS: Ht 165.1 cm; Wt 87.5 kg
[2022-02-10 13:02] VITALS: BP 95/57
== END 2022-02-11 07:24 | disposition left against medical advice (07) ==
LOC: M ED 13:01
DX: Z53.21 Procedure and treatment not carried out due to patient leaving prior to being seen by health care provider (principal)

== ENCOUNTER → 2022-02-11 | Outpatient (CLI) | payer MEDICARE ==
[2022-02-11 15:47] LABS: BASO % 0.4 % (0.0-1.0); EOS % 0.3 % (0.0-3.0); HEMATOCRIT 49.5 % (36.0-47.0); HEMOGLOBIN 15.7 g/dl (12.0-15.5); LYMPH # 1.1 10^3/uL (1.5-5.0); LYMPH % 13.6 % (24.0-44.0); MEAN CORPUSCULAR HEMOGLOBIN 34.5 pg (27.0-33.0); MEAN CORPUSCULAR HGB CONC 31.7 g/dl (32.0-36.5); MEAN CORPUSCULAR VOLUME 108.8 fl (80.0-96.0); MONO # 0.8 10^3/uL (0.0-0.8); MONO % 10.4 % (2.0-8.0); NEUTROPHILS # 5.8 10^3/uL (1.5-8.5); NEUTROPHILS % 74.7 % (36.0-66.0); PLATELET COUNT, AUTOMATED 278 10^3/uL (150-450); RED BLOOD COUNT 4.55 10^6/uL (4.00-5.40); WHITE BLOOD COUNT 7.8 10^3/uL (4.0-10.0)
[2022-02-11 16:26] LABS: ALBUMIN 3.4 GM/DL (3.2-5.2); ALT/SGPT 15 U/L (12-78); BILIRUBIN,TOTAL 0.7 MG/DL (0.2-1.0); BLOOD UREA NITROGEN 13 MG/DL (7-18); CALCIUM LEVEL 9.2 MG/DL (8.8-10.2); CARBON DIOXIDE LEVEL 37 MEQ/L (21-32); CHLORIDE LEVEL 92 MEQ/L (98-107); CREATININE FOR GFR 0.94 MG/DL (0.55-1.30); GLOMERULAR FILTRATION RATE > 60.0 (>45); GLUCOSE, FASTING 174 MG/DL (70-100); POTASSIUM SERUM 5.3 MEQ/L (3.5-5.1); SODIUM LEVEL 132 MEQ/L (136-145); TOTAL PROTEIN 6.6 GM/DL (6.4-8.2)
[2022-02-11 16:34] LABS: ERYTHROCYTE SEDIMENTATION RATE 2 mm/hr (0-30)
== END ==
LOC: M PLALAB 12:14
PROVIDERS: ATTEND Physician Assistant
DX: R05.1 Acute cough (principal)

== ENCOUNTER → 2022-02-12 | Outpatient (CLI) | payer MEDICARE | LOC: M RAD 09:46 | PROVIDERS: ATTEND Physician Assistant | DX: R05.1 Acute cough (principal) ==

== ENCOUNTER 2022-02-14 11:42 | Emergency (ER) | payer MEDICARE ==
[~2022-02-14] VITALS: Ht 167.6 cm; Wt 81.4 kg
[2022-02-14 11:56] VITALS: BP 125/59
[2022-02-14 15:02] LABS: VENOUS BASE EXCESS 7.5 (-2.0-2.0); VENOUS HCO3 36.3 MEQ/L (23.0-27.0); VENOUS O2 SATURATION 47.8 % (60.0-80.0); VENOUS PARTIAL PRESSURE CO2 67.4 mmHg (38.0-50.0); VENOUS PH 7.349 UNITS (7.330-7.430); VENOUS STANDARD HCO3 29.7 MEQ/L; VENOUS TOTAL CO2 38.4 MEQ/L (24.0-28.0)
[2022-02-14 15:06] LABS: BASO % 0.4 % (0.0-1.0); EOS % 0.3 % (0.0-3.0); HEMATOCRIT 50.2 % (36.0-47.0); HEMOGLOBIN 15.9 g/dl (12.0-15.5); LYMPH # 1.4 10^3/uL (1.5-5.0); LYMPH % 14.6 % (24.0-44.0); MEAN CORPUSCULAR HEMOGLOBIN 34.3 pg (27.0-33.0); MEAN CORPUSCULAR HGB CONC 31.7 g/dl (32.0-36.5); MEAN CORPUSCULAR VOLUME 108.4 fl (80.0-96.0); MONO # 0.9 10^3/uL (0.0-0.8); MONO % 9.1 % (2.0-8.0); NEUTROPHILS # 7.1 10^3/uL (1.5-8.5); NEUTROPHILS % 75.3 % (36.0-66.0); PLATELET COUNT, AUTOMATED 252 10^3/uL (150-450); RED BLOOD COUNT 4.63 10^6/uL (4.00-5.40); WHITE BLOOD COUNT 9.5 10^3/uL (4.0-10.0)
[2022-02-14 15:56] LABS: ALBUMIN 3.5 GM/DL (3.2-5.2); ALT/SGPT 15 U/L (12-78); BILIRUBIN,DIRECT 0.3 MG/DL (0.0-0.2); BILIRUBIN,TOTAL 0.7 MG/DL (0.2-1.0); BLOOD UREA NITROGEN 11 MG/DL (7-18); C REACTIVE PROTEIN QUANTITATIV 0.35 MG/DL (0.00-0.30); CALCIUM LEVEL 9.1 MG/DL (8.8-10.2); CARBON DIOXIDE LEVEL 39 MEQ/L (21-32); CHLORIDE LEVEL 95 MEQ/L (98-107); CREATININE FOR GFR 0.88 MG/DL (0.55-1.30); GLOMERULAR FILTRATION RATE > 60.0 (>45); GLUCOSE, FASTING 125 MG/DL (70-100); NT-PRO BNP 2194 PG/ML (<125); POTASSIUM SERUM 4.5 MEQ/L (3.5-5.1); SODIUM LEVEL 136 MEQ/L (136-145); THYROID STIMULATING HORMONE 0.357 uIU/ML (0.358-3.740)
[2022-02-14 16:01] LABS: ERYTHROCYTE SEDIMENTATION RATE 3 mm/hr (0-30)
== END 2022-02-14 16:40 | disposition home or self-care (01) ==
LOC: EDBD 11:42 → M ED 11:42
DX: I11.0 Hypertensive heart disease with heart failure (principal); I50.9 Heart failure, unspecified; M54.50 Low back pain, unspecified; R05.9 Cough, unspecified; E11.9 Type 2 diabetes mellitus without complications; J44.9 Chronic obstructive pulmonary disease, unspecified; G47.33 Obstructive sleep apnea (adult) (pediatric); F17.200 Nicotine dependence, unspecified, uncomplicated; Z79.51 Long term (current) use of inhaled steroids; Z79.82 Long term (current) use of aspirin; Z79.84 Long term (current) use of oral hypoglycemic drugs; Z79.899 Other long term (current) drug therapy
CPT/HCPCS: 36415; 71046; 80048; 80076; 82803; 83605; 83880; 84443; 84484; 85025; 85652; 86140; 87486; 87581; 87633; 87798; 93005; 93041; 94760; 99285; G0463

== ENCOUNTER → 2022-03-27 | Outpatient (CLI) | payer MEDICARE | LOC: M WUC 13:36 | PROVIDERS: ATTEND Physician Assistant | DX: M54.50 Low back pain, unspecified (principal) ==

== ENCOUNTER → 2022-05-02 | Outpatient (CLI) | payer MEDICAID, MEDICARE ==
[2022-05-02 10:19] LABS: BASO % 0.4 % (0.0-1.0); EOS # 0.3 10^3/uL (0.0-0.5); EOS % 3.3 % (0.0-3.0); HEMATOCRIT 52.2 % (36.0-47.0); HEMATOCRIT 52.5 % (36.0-47.0); HEMOGLOBIN 16.8 g/dl (12.0-15.5); LYMPH # 1.9 10^3/uL (1.5-5.0); LYMPH % 24.7 % (24.0-44.0); MEAN CORPUSCULAR HEMOGLOBIN 32.1 pg (27.0-33.0); MEAN CORPUSCULAR VOLUME 100.4 fl (80.0-96.0); MONO # 0.4 10^3/uL (0.0-0.8); MONO % 4.8 % (2.0-8.0); NEUTROPHILS # 5.2 10^3/uL (1.5-8.5); NEUTROPHILS % 66.5 % (36.0-66.0); PLATELET COUNT, AUTOMATED 251 10^3/uL (150-450); RED BLOOD COUNT 5.23 10^6/uL (4.00-5.40); WHITE BLOOD COUNT 7.9 10^3/uL (4.0-10.0)
[2022-05-02 10:30] LABS: HEMOGLOBIN A1c 6.9 % (4.0-6.0)
[2022-05-02 10:48] LABS: CREATININE, URINE 51.6 MG/DL; MAU/CREAT RATIO 27.1 MCG/MG (0.0-30.0)
== END ==
LOC: M LAB 09:46
PROVIDERS: ATTEND Physician Assistant Medical
DX: I50.30 Unspecified diastolic (congestive) heart failure (principal)

== ENCOUNTER → 2022-05-06 | Outpatient (CLI) | payer MEDICAID, MEDICARE | LOC: M PLAIMG 10:09 | PROVIDERS: ATTEND Physician Assistant Medical | DX: M54.50 Low back pain, unspecified (principal) ==

== ENCOUNTER → 2022-08-08 | Outpatient (CLI) | payer MEDICARE | LOC: M WHC 10:06 | PROVIDERS: ATTEND Orthopaedic Surgery | DX: M48.54XA Collapsed vertebra, not elsewhere classified, thoracic region, initial encounter for fracture (principal) ==

== ENCOUNTER 2022-09-24 15:51 | Inpatient (IN) | payer MEDICARE ==
[~2022-09-24] VITALS: Ht 162.6 cm; Wt 81.9 kg
[2022-09-24] VITALS (11 sets, daily range): BP systolic 98–130; BP diastolic 56–72; TEMP 96.6; O2SAT 86–100
[2022-09-24] MEDS ORDERED: ALBUTEROL SULFATE 2.5MG/0.5ML INH NEB SOLN INH ONE (17:15)
[2022-09-24] MEDS ORDERED: IPRATROPIUM 0.5MG/ALBUTEROL 2.5MG INH SOL UD 3ML (DUONEB) NEB ONE (17:15)
[2022-09-24] MEDS ORDERED: dexAMETHasone 20MG/5ML VIAL IV ONE (17:15)
[2022-09-24 17:34] LABS: CPK CREATINE PHOSPHOKINASE 54 U/L (34-145)
[2022-09-24 17:35] LABS: ALBUMIN 3.5 G/DL (3.2-5.2); ALKALINE PHOSPHATASE 96 U/L (46-116); ALT/SGPT < 9 U/L (7.0-40); AST/SGOT 10 U/L (<34); BILIRUBIN,DIRECT 0.2 MG/DL (<0.4); BILIRUBIN,TOTAL 0.5 MG/DL (0.3-1.2); BLOOD UREA NITROGEN 31 MG/DL (9-23); CALCIUM LEVEL 10.4 MG/DL (8.3-10.6); CARBON DIOXIDE LEVEL 35 MMOL/L (20-31); CHLORIDE LEVEL 97 MMOL/L (98-107); CK-MB VALUE MASS 2.3 NG/ML (<3.6); CREATININE FOR GFR 1.46 MG/DL (0.55-1.30); GLUCOSE, FASTING 89 MG/DL (74-106); MB/CK RELATIVE INDEX 4.25 (< OR =4); POTASSIUM SERUM 5.6 MMOL/L (3.5-5.1); SODIUM LEVEL 136 MMOL/L (136-145); TOTAL PROTEIN 6.9 G/DL (5.7-8.2)
[2022-09-24 17:37] LABS: THYROID STIMULATING HORMONE 0.878 uIU/ML (0.55-4.78); THYROXINE (T4) 8.7 UG/DL (4.5-10.9)
[2022-09-24 17:42] LABS: ABG BASE EXCESS 3.8 (-2.0-2.0); ABG HCO3 32.6 MMOL/L (22.0-26.0); ABG PARTIAL PRESSURE O2 62.1 mmHg (75.0-100.0); ABG STANDARD HCO3 27.6 MMOL/L. (22.0-26.0); ABG TOTAL CO2 34.7 MMOL/L (23.0-31.0)
[2022-09-24 17:42] LABS: BASO % 0.4 % (0.0-1.0); EOS % 0.1 % (0.0-3.0); HEMATOCRIT 51.4 % (36.0-47.0); HEMOGLOBIN 15.9 g/dl (12.0-15.5); LYMPH # 1.8 10^3/uL (1.5-5.0); LYMPH % 17.1 % (24.0-44.0); MEAN CORPUSCULAR HGB CONC 30.9 g/dl (32.0-36.5); MEAN CORPUSCULAR VOLUME 106.6 fl (80.0-96.0); MONO # 0.8 10^3/uL (0.0-0.8); MONO % 7.5 % (2.0-8.0); NEUTROPHILS % 74.3 % (36.0-66.0); PLATELET COUNT, AUTOMATED 326 10^3/uL (150-450); RED BLOOD COUNT 4.82 10^6/uL (4.00-5.40); WHITE BLOOD COUNT 10.7 10^3/uL (4.0-10.0)
[2022-09-24 17:45] LABS: ABG PARTIAL PRESSURE CO2 67.8 mmHg (35.0-45.0)
[2022-09-24 18:07] LABS: INR 1.02; PROTHROMBIN TIME 13.6 SECONDS (12.5-14.5)
[2022-09-24] MEDS ORDERED: OLANZapine INTRAMUSCULAR 10MG VIAL IM ONE (18:25)
[2022-09-24] MEDS ORDERED: PIPERACILLIN/TAZOBACTAM SOD 3.375 GM in D5W MINI-BAG PLUS 50 ML IV ONE (18:35)
[2022-09-24] MEDS ORDERED: LORazepam 2 MG/ML 1ML VIAL IV STA (19:27)
[2022-09-24 19:32] LABS: MB/CK RELATIVE INDEX 4.16 (< OR =4)
[2022-09-24] MEDS ORDERED: ATOR40TA75 PO (19:36)
[2022-09-24] MEDS ORDERED: LISI10TA22 PO (19:36)
[2022-09-24] MEDS ORDERED: INCR1INH INH (19:36)
[2022-09-24] MEDS ORDERED: HUMU1INJ2 SC (19:36)
[2022-09-24] MEDS ORDERED: GABA-282 PO (19:36)
[2022-09-24] MEDS ORDERED: HOME MED LIST COMPLETE! XX SCH (19:40)
[2022-09-24] MEDS ORDERED: NS 1,000 ML IV SCH (20:45)
[2022-09-24] MEDS ORDERED: NS 1,000 ML IV ONE ×3 (20:45→22:17)
[2022-09-24] MEDS ORDERED: DEXTROSE 50% 50ML SYRINGE IV PRN (21:15)
[2022-09-24] MEDS ORDERED: GLUCOSE 4GM CHEW TABLET PO PRN (21:15)
[2022-09-24] MEDS ORDERED: GLUCAGON INJ 1MG VIAL SC PRN (21:15)
[2022-09-24] MEDS ORDERED: ALBUTEROL SULFATE 2.5MG/0.5ML INH NEB SOLN NEB PRN (21:15)
[2022-09-24] MEDS ORDERED: FENTANYL DRIP LOCK BOX KEY 1 EACH XX PRN (22:15)
[2022-09-24] MEDS ORDERED: fentaNYL CITRATE/NaCl 1,000 MCG in IV 1 EA IV SCH (22:15)
[2022-09-24] MEDS ORDERED: MIDAZOLAM 100MG/100ML-0.9%NACL 100 MG in IV 1 EA IV SCH (22:15)
[2022-09-24] MEDS ORDERED: SUCCINYLCHOLINE INJ 200MG/10ML VIAL IV ONE (22:21)
[2022-09-24] MEDS ORDERED: ETOMIDATE INJ 20MG/10ML VIAL IV ONE (22:21)
[2022-09-24] MEDS ORDERED: PIPERACILLIN/TAZOBACTAM SOD 2.25 GM in D5W MINI-BAG PLUS 50 ML IV SCH (22:35)
[2022-09-24] MEDS ORDERED: MIDAZOLAM INJ 2MG/2ML VIAL IV PRN (22:35)
[2022-09-24 23:06] LABS: ABG BASE EXCESS -0.3 (-2.0-2.0); ABG HCO3 28.7 MMOL/L (22.0-26.0); ABG O2 SATURATION 96.9 % (95.0-99.0); ABG PARTIAL PRESSURE CO2 66.6 mmHg (35.0-45.0); ABG PARTIAL PRESSURE O2 101.5 mmHg (75.0-100.0); ABG STANDARD HCO3 24.3 MMOL/L. (22.0-26.0); ABG TOTAL CO2 30.8 MMOL/L (23.0-31.0); ABG pH (ARTERIAL) 7.253 UNITS (7.350-7.450)
[2022-09-24] MEDS: LR 1,000 ML IV SCH (23:16)
[2022-09-25] VITALS (42 sets, daily range): BP systolic 78–134; BP diastolic 50–64; TEMP 97–98.2; O2SAT 91–95
[2022-09-25] MEDS ORDERED: INSULIN LISPRO (NovoLOG) PER UNIT SC SCH
[2022-09-25] MEDS: methylPREDNISolone 125MG 2ML VIAL IV SCH ×2 (00:53→08:26)
[2022-09-25] MEDS: PIPERACILLIN/TAZOBACTAM SOD 2.25 GM in D5W MINI-BAG PLUS 50 ML IV SCH ×3 (00:53→12:09)
[2022-09-25] MEDS: IPRATROPIUM 0.5MG/ALBUTEROL 2.5MG INH SOL UD 3ML (DUONEB) NEB SCH ×3 (01:00→13:22)
[2022-09-25 04:39] LABS: HEMOGLOBIN 14.4 g/dl (12.0-15.5); MEAN CORPUSCULAR HGB CONC 30.6 g/dl (32.0-36.5); MEAN CORPUSCULAR VOLUME 107.6 fl (80.0-96.0); PLATELET COUNT, AUTOMATED 206 10^3/uL (150-450); RED BLOOD COUNT 4.37 10^6/uL (4.00-5.40); WHITE BLOOD COUNT 6.4 10^3/uL (4.0-10.0)
[2022-09-25 04:53] LABS: ALBUMIN 2.8 G/DL (3.2-5.2); ALKALINE PHOSPHATASE 77 U/L (46-116); ALT/SGPT < 9 U/L (7.0-40); AST/SGOT 11 U/L (<34); BILIRUBIN,TOTAL 0.8 MG/DL (0.3-1.2); BLOOD UREA NITROGEN 34 MG/DL (9-23); CALCIUM LEVEL 8.6 MG/DL (8.3-10.6); CARBON DIOXIDE LEVEL 29 MMOL/L (20-31); CHLORIDE LEVEL 102 MMOL/L (98-107); CREATININE FOR GFR 1.28 MG/DL (0.55-1.30); GLOMERULAR FILTRATION RATE 44.3 (>45); GLUCOSE, FASTING 225 MG/DL (74-106); POTASSIUM SERUM 4.9 MMOL/L (3.5-5.1); SODIUM LEVEL 139 MMOL/L (136-145); TOTAL PROTEIN 5.4 G/DL (5.7-8.2)
[2022-09-25] MEDS: INSULIN LISPRO (NovoLOG) PER UNIT SC SCH ×2 (05:25→12:09)
[2022-09-25] MEDS: HEPARIN SOD (PORCINE) 5000UNITS/ML 1ML VIAL/SYRINGE SC SCH ×2 (05:26→14:07)
[2022-09-25] MEDS ORDERED: methylPREDNISolone 125MG 2ML VIAL IV SCH ×2 (06:00→16:00)
[2022-09-25 06:23] LABS: ABG BASE EXCESS 0.9 (-2.0-2.0); ABG HCO3 26.9 MMOL/L (22.0-26.0); ABG O2 SATURATION 96.1 % (95.0-99.0); ABG PARTIAL PRESSURE CO2 48.3 mmHg (35.0-45.0); ABG PARTIAL PRESSURE O2 79.3 mmHg (75.0-100.0); ABG STANDARD HCO3 25.2 MMOL/L. (22.0-26.0); ABG TOTAL CO2 28.4 MMOL/L (23.0-31.0); ABG pH (ARTERIAL) 7.364 UNITS (7.350-7.450)
[2022-09-25] MEDS ORDERED: PANTOPRAZOLE 40MG VIAL IV SCH (09:00)
[2022-09-25] MEDS: LR 1,000 ML IV SCH (12:38)
[2022-09-25 15:29] LABS: ABG BASE EXCESS 4.1 (-2.0-2.0); ABG HCO3 31.8 MMOL/L (22.0-26.0); ABG O2 SATURATION 90.8 % (95.0-99.0); ABG PARTIAL PRESSURE O2 62.9 mmHg (75.0-100.0); ABG TOTAL CO2 33.7 MMOL/L (23.0-31.0); ABG pH (ARTERIAL) 7.337 UNITS (7.350-7.450)
[2022-09-25 15:31] LABS: ABG PARTIAL PRESSURE CO2 60.8 mmHg (35.0-45.0)
[2022-09-25] MEDS ORDERED: HYOSCYAMINE SULFATE 0.125 MG SUBL TABLET PO PRN (16:20)
[2022-09-25] MEDS ORDERED: ONDANSETRON 4MG 2ML VIAL IV PRN (16:20)
[2022-09-25] MEDS ORDERED: LORazepam 2 MG/ML 1ML VIAL IV PRN (16:20)
[2022-09-25] MEDS ORDERED: MORPHINE 2 MG/ML 1ML VIAL IV PRN (16:20)
[2022-09-25] MEDS ORDERED: PIPERACILLIN/TAZOBACTAM SOD 3.375 GM in D5W MINI-BAG PLUS 50 ML IV SCH (18:00)
[2022-09-26 06:34] LABS: HEMATOCRIT 47.6 % (36.0-47.0); HEMOGLOBIN 14.2 g/dl (12.0-15.5); MEAN CORPUSCULAR HEMOGLOBIN 32.7 pg (27.0-33.0); MEAN CORPUSCULAR HGB CONC 29.8 g/dl (32.0-36.5); MEAN CORPUSCULAR VOLUME 109.7 fl (80.0-96.0); PLATELET COUNT, AUTOMATED 246 10^3/uL (150-450); RED BLOOD COUNT 4.34 10^6/uL (4.00-5.40); WHITE BLOOD COUNT 25.6 10^3/uL (4.0-10.0)
[2022-09-26 07:18] LABS: CALCIUM LEVEL 7.8 MG/DL (8.3-10.6); CREATININE FOR GFR 1.46 MG/DL (0.55-1.30); MAGNESIUM LEVEL 1.2 MG/DL (1.8-2.4); POTASSIUM SERUM 5.9 MMOL/L (3.5-5.1)
[2022-09-26] MEDS: MORPHINE 10MG/0.5ML ORAL CONCENTRATE SOLUTION U/D SL PRN ×2 (10:57→13:28)
[2022-09-26] MEDS: LORazepam 1 MG TAB PO PRN ×3 (10:57→22:39)
[2022-09-26] MEDS: OLANZapine INTRAMUSCULAR 10MG VIAL IM PRN (14:30)
[2022-09-27] MEDS: MORPHINE 10MG/0.5ML ORAL CONCENTRATE SOLUTION U/D SL PRN ×6 (01:26→20:23)
[2022-09-27] MEDS: LORazepam 1 MG TAB PO PRN ×5 (08:27→20:24)
[2022-09-27] MEDS: OLANZapine INTRAMUSCULAR 10MG VIAL IM PRN (08:28)
== END 2022-09-27 20:30 | disposition expired | DRG 208 ==
LOC: M ED 15:51 → M ED INP 19:31 → M ICU 21:45 → M MS5PR 09-25 17:51
PROVIDERS: ADMIT Internal Medicine Pulmonary Disease; ATTEND Student in an Organized Health Care Education/Training Program
PROC: 5A1935Z Respiratory Ventilation, Less than 24 Consecutive Hours (ICD-10-PCS; principal; 2022-09-24)
PROC: 0BH17EZ Insertion of Endotracheal Airway into Trachea, Via Natural or Artificial Opening (ICD-10-PCS; 2022-09-24)
DX: J96.21 Acute and chronic respiratory failure with hypoxia (principal); J18.9 Pneumonia, unspecified organism; G93.41 Metabolic encephalopathy; J44.1 Chronic obstructive pulmonary disease with (acute) exacerbation; J44.0 Chronic obstructive pulmonary disease with (acute) lower respiratory infection; E87.29 Other acidosis; N39.0 Urinary tract infection, site not specified; R57.1 Hypovolemic shock; J96.22 Acute and chronic respiratory failure with hypercapnia; I95.9 Hypotension, unspecified; Z66 Do not resuscitate; E11.9 Type 2 diabetes mellitus without complications; Z51.5 Encounter for palliative care; J20.9 Acute bronchitis, unspecified; F17.210 Nicotine dependence, cigarettes, uncomplicated; E78.5 Hyperlipidemia, unspecified; I11.0 Hypertensive heart disease with heart failure; I50.9 Heart failure, unspecified; Z79.82 Long term (current) use of aspirin; Z79.4 Long term (current) use of insulin; Z79.899 Other long term (current) drug therapy